=== PATIENT | female | born 1950 | race Hispanic/Latino ===

== ENCOUNTER 2020-09-04 08:51 | Day surgery (SDC) | payer MEDICARE ==
[~2020-09-04 08:51] MED LIST: LACTATED RINGERS 1,000 ML IV SCH
[2020-09-04] MEDS ORDERED: ONDANSETRON 4 MG/2 ML INJ IV PRN (10:47)
--- NOTE | 2020-09-04 10:47 | Anesthesia Day of Surgery ---
Anesthesia Day of Surgery - Day of Surgery Patient Examined: Yes Patient H&P Reviewed: Yes Patient is NPO: Yes
--- NOTE | 2020-09-04 10:47 | Anesthesia Consultation ---
Anesthesia Consult and Med Hx Date of service: 09/04/20 - Airway Anesthetic Teeth Evaluation: Good ROM Head & Neck: Adequate Mental/Hyoid Distance: Adequate Mallampati Class: Class II Intubation Access Assessment: Probably Good - Pulmonary Exam CTA: Yes - Cardiac Exam Cardiac Exam: RRR - Pre-Operative Health Status ASA Pre-Surgery Classification: ASA3 Proposed Anesthetic Plan: General - Pulmonary Hx Smoking: No Hx Respiratory Symptoms: No - Cardiovascular System Hx Hypertension: Yes (taken off meds yrs ago; BP elevated today 2/2 anxiety, per patient) Hx Heart Attack/AMI: No Hx Percutaneous Transluminal Coronary Angioplasty (PTCA): No Hx Cardia Arrhythmia: Yes (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
[2020-09-04] MEDS ORDERED: SCOPOLAMINE TRANSDERMAL PATCH 72 HR TD NR (10:49)
[2020-09-04] MEDS ORDERED: dexAMETHasone 20 MG/5 ML VIAL ONE (12:09)
[2020-09-04] MEDS ORDERED: fentaNYL 100 MCG/2 ML INJ ONE (12:09)
[2020-09-04] MEDS ORDERED: ONDANSETRON 4 MG/2 ML INJ ONE (12:09)
[2020-09-04] MEDS ORDERED: LIDOCAINE MPF (2%) 20 MG/1 ML VIAL 5 ML ONE (12:09)
[2020-09-04] MEDS ORDERED: propofoL 200 MG/20 ML VIAL IV ONE (12:09)
--- NOTE | 2020-09-04 12:52 | Cat Scan Report ---
CT ABDOMEN AND PELVIS WITHOUT CONTRAST HISTORY: PRE OP. Left ureteral stone. Flank pain. COMPARISON: None. TECHNIQUE: Helical CT images of the abdomen and pelvis were obtained without administration of intrav enous contrast. Sagittal and coronal reformatted images were reviewed. All CT scans at this location are performed using CT dose reduction for ALARA by means of automated exposure control. FINDINGS: Abdomen/pelvis: Both kidneys are normal size, contour and position. There are multiple parapelvic cy sts in both renal sinuses measuring up to 2 cm. 4 small calyceal stones are identified in the inferio r right kidney. The largest stone measures 3 mm at the inferior pole. A solitary 3 mm calyceal stone is identified in the mid left kidney. The ureters are normal course and caliber. No ureteral stones a re detected. The bladder is unremarkable. The liver, biliary system, pancreas, spleen and adrenal glands are unremarkable. There is no evidence for bowel obstruction or focal inflammation. The appendix is not confidently andriy ntified. There are multiple slightly prominent lymph nodes near the base of the mesentery extending t o the left lower quadrant. The largest lymph node measures 8 mm in short axis. There is no pathologic adenopathy. This could be related to mesenteric panniculitis. The uterus and adnexa are within normal limits. No pelvic fluid collection. No free air. Lungs/bones: The lung bases are clear. The bony structures are osteopenic. There are mild degenerati ve changes in the lumbar spine. No fracture or suspicious bony lesion is detected. IMPRESSION: Small bilateral renal stones as described. Bilateral parapelvic renal cysts. No ureteral stones or hy dronephrosis is appreciated. These findings were discussed with Dr. [place]en[place] of urology at 1240 hours. Signer Name: Harmeet Uribe Jr, MD Signed: 09/04/2020 12:47 PM Workstation Name: [id number]
[2020-09-04 13:42] VITALS: BP 183/90
== END 2020-09-04 08:52 | disposition home or self-care (01) ==
LOC: OR 08:51
PROVIDERS: ATTEND Urology
DX: R10.9 Unspecified abdominal pain (principal); N20.1 Calculus of ureter; M47.896 Other spondylosis, lumbar region; E11.9 Type 2 diabetes mellitus without complications; I10 Essential (primary) hypertension; N28.81 Hypertrophy of kidney; Z53.8 Procedure and treatment not carried out for other reasons; Z90.49 Acquired absence of other specified parts of digestive tract; Z98.890 Other specified postprocedural states; Z80.0 Family history of malignant neoplasm of digestive organs
CPT/HCPCS: 74176; J1100; J2405; J2704; J3010

== ENCOUNTER 2021-04-23 07:56 | Outpatient (CLI) | payer MEDICARE ==
--- NOTE | 2021-04-23 09:01 | Cat Scan Report ---
CT ABDOMEN AND PELVIS WITHOUT CONTRAST INDICATION / CLINICAL INFORMATION: CALCULUS OF KIDNEY. TECHNIQUE: Axial CT images were obtained through the abdomen and pelvis without IV contrast. All CT scans at this location are performed using CT dose reduction for ALARA by means of automated exposure control. COMPARISON: CT from 09/04/2020. FINDINGS: LOWER CHEST: No significant abnormality LIVER: No significant abnormality GALLBLADDER/BILIARY TREE: No significant abnormality PANCREAS: No significant abnormality SPLEEN: No significant abnormality ADRENALS: No significant abnormality KIDNEYS / URETER: Multiple parapelvic cysts are again seen. There are bilateral nonobstructive renal calculi, measuring 4 mm at the lower pole the right kidney and 2 mm at the midpole of the left kidney . No ureteral calculus or hydronephrosis. URINARY BLADDER: No significant abnormality REPRODUCTIVE ORGANS: No significant abnormality STOMACH / BOWEL: No significant abnormality. The appendix is not discretely seen, though there are no secondary signs of appendicitis. LYMPH NODES: Stable stranding of the central mesentery without new or increasing adenopathy. VASCULATURE: No significant abnormality. OTHER: No free air, free fluid, or focal fluid collection is identified. SKELETAL SYSTEM: There is osteopenia and mild degenerative changes of the lower thoracic and lumbar s pine. No acute process. IMPRESSION: 1. No acute abnormality of the abdomen or pelvis. No urolithiasis or hydronephrosis. 2. Bilateral nephrolithiasis and other stable chronic and incidental findings as above. Signer Name: Harris Meredith MD Signed: 04/23/2021 8:57 AM Workstation Name: [id number]
== END 2021-04-23 07:57 | disposition home or self-care (01) ==
LOC: CT 07:56
PROVIDERS: ATTEND Urology
DX: N20.0 Calculus of kidney (principal); N28.1 Cyst of kidney, acquired
CPT/HCPCS: 74176